=== PATIENT | male | born 1995 | race Caucasian/White ===

== ENCOUNTER 2017-02-15 23:07 | Emergency (ER) | payer OTHER ==
--- NOTE | 2017-02-15 23:09 | EDPHY ---
H & P HPI/ROS: HPI CHIEF COMPLAINT: Nausea, vomiting, diarrhea, abdominal pain HISTORY OF PRESENT ILLNESS: patient otherwise healthy 21-year-old male, no significant medical history does not take any daily medications, no abdominal surgeries, presents emergency room with nausea vomiting and abdominal pain. The abdominal pain is located right upper quadrant right lower quadrant. States he was in [facility] he ate at [employer]. He tells me he had wings and cheese curds. He states shortly after around 5 o'clock after eating this he developed some nausea and some abdominal pain he persistently had nausea vomiting and diarrhea after this. He vomited multiple times. He denies chest pain or shortness of breath denies fever. His pain is located right upper quadrant epigastric and right lower quadrant. 01/20. Past Medical History: No significant medical Past Surgical History: no abdominal surgeries he still has appendix and gallbladder. Social History: Social drinker, denies illicit drugs or alcohol daily denies tobacco. Had 1 drink this evening. [employer]. Family History: noncontributory ROS REVIEW OF SYSTEMS: A comprehensive 10 point review of systems is otherwise negative aside from elements mentioned in the history of present illness. Exam Constitutional appears well nontoxic triage nursing summary reviewed, vital signs reviewed, awake/alert. Eyes normal conjunctivae and sclera, EOMI, PERRLA. HENT normal inspection, atraumatic, moist mucus membranes, no epistaxis, neck supple/ no meningismus, no raccoon eyes. Respiratory clear to auscultation bilaterally, normal breath sounds, no respiratory distress, no wheezing. Cardiovascular rate normal, regular rhythm, no murmur, no edema, distal pulses normal. Gastrointestinal soft, tender palpation right upper quadrant, epigastric, right lower quadrant, no peritoneal signs, hyperactive bowel sounds, no rebound , no guarding, no distension, no pulsatile mass. Genitourinary no CVA tenderness. Musculoskeletal no midline vertebral tenderness, full range of motion, no calf swelling, no tenderness of extremities, no meningismus, good pulses, neurovascularly intact. Skin pink, warm, & dry, no rash, skin atraumatic. Neurologic awake, alert and oriented x 3, AAOx3, moves all 4 extremities equally, motor intact, sensory intact, CN II-XII intact, normal cerebellar, normal vision, normal speech. Psychiatric normal mood/affect. Heme/Lymph/Immune no lymphadenopathy. Differential Diagnosis:Differential diagnosis includes but is not limited to and in no particular order: Food-borne illness, pancreatitis, gallbladder disease, Bowel obstruction, appendicitis,, diverticulitis, colitis, enteritis, perforated viscus, gastritis, GERD, esophagitis, urinary tract infection, pyelonephritis, kidney stones Medical Decision Making: plan for this patient IV establishment, IV fluid bolus , IV Zofran for nausea, IV Dilaudid for acute pain control. Ultrasound right upper quadrant, abdominal blood work reassess. Re-evaluation: Ultrasound of the Right upper quadrant. The results of the study are negative for anything acute. I discussed the results of this study with the radiologist Dr. ANAYA [id number]: Re-evaluation this time patient does feel better after IV fluids nausea medicine and Dilaudid. He Is resting comfortably. Blood work pending. Ultrasound reviewed negative. [id number]: Re-evaluated. Patient complains of right lower quadrant pain. Ongoing nausea. We medicated with IV Dilaudid. plan is for CT abdomen pelvis with IV contrast. CT scan of the Abdomen pelvis with IV contrast The results of the study are enteritis present, right lower quadrant lymphadenopathy but a normal appendix. The study was read by Dr. Marie. I viewed the images myself on the PACS system. 0219: Patient is resting comfortably. Abdomen soft. No guarding or peritoneal signs. CT reviewed shows enteritis with lymphadenopathy normal appendix. Patient requesting to drink something. Will p.o. challenge him. If he does well he can be discharged from the emergency room. He understands bland diet for next 24-48 hours return emergency room if there is worsening symptoms includes worsening abdominal pain, fever, vomiting. He understands. Source: Patient Constitutional: Initial Vital Signs Temperature (C) 36.5 C 02/15/17 23:11 Heart Rate 107 H 02/15/17 23:11 Respiratory Rate 19 02/15/17 23:11 Blood Pressure 134/89 H 02/15/17 23:11 O2 Sat (%) 99 02/15/17 23:11 O2 Delivery Mode Room Air Allergies/Adverse Reactions: nickel Allergy (Verified 02/15/17 23:11) Home Medications: Medication Instructions Recorded NK [No Known Home Meds] 02/15/17 Medical Decision Making - Data Points Laboratory Results: Laboratory Results 02/15/17 23:35 02/15/17 23:35 02/15/17 02/15/17 02/15/17 23:35 23:35 23:35 WBC 11.90 10^3/uL H 10^3/uL (3.80-9.50) RBC 5.91 10^6/uL 10^6/uL (4.40-6.38) Hgb 16.7 g/dL g/dL (13.7-17.5) Hct 48.0 % % (40.0-51.0) MCV 81.2 fL L fL (81.5-99.8) MCH 28.3 pg pg (27.9-34.1) MCHC 34.8 g/dL g/dL (32.4-36.7) RDW 12.3 % % (11.5-15.2) Plt Count 220 10^3/uL 10^3/uL (150-400) MPV 10.1 fL fL (8.7-11.7) Neut % (Auto) 87.9 % H % (39.3-74.2) Lymph % (Auto) 5.2 % L % (15.0-45.0) Ida % (Auto) 5.4 % % (4.5-13.0) Eos % (Auto) 0.8 % % (0.6-7.6) Baso % (Auto) 0.4 % % (0.3-1.7) Nucleat RBC Rel Count 0.0 % % (0.0-0.2) Absolute Neuts (auto) 10.46 10^3/uL H 10^3/uL (1.70-6.50) Absolute Lymphs (auto) 0.62 10^3/uL L 10^3/uL (1.00-3.00) Absolute Monos (auto) 0.64 10^3/uL 10^3/uL (0.30-0.80) Absolute Eos (auto) 0.09 10^3/uL 10^3/uL (0.03-0.40) Absolute Basos (auto) 0.05 10^3/uL 10^3/uL (0.02-0.10) Absolute Nucleated RBC 0.00 10^3/uL 10^3/uL (0-0.01) Immature Gran % 0.3 % % (0.0-1.1) Immature Gran # 0.04 10^3/uL 10^3/uL (0.00-0.10) VBG Lactic Acid 1.5 mmol/L mmol/L (0.7-2.1) Sodium 139 mEq/L mEq/L (134-144) Potassium 4.2 mEq/L mEq/L (3.5-5.2) Chloride 103 mEq/L mEq/L (97-110) Carbon Dioxide 21 mEq/l L mEq/l (22-31) Anion Gap 15 mEq/L mEq/L (8-16) BUN 15 mg/dL mg/dL (7-23) Creatinine 1.2 mg/dL mg/dL (0.7-1.3) Estimated GFR > 60 Glucose 117 mg/dL H mg/dL (70-100) Calcium 10.3 mg/dL mg/dL (8.5-10.4) Total Bilirubin 2.2 mg/dL H mg/dL (0.1-1.4) Conjugated Bilirubin 0.4 mg/dL mg/dL (0.0-0.5) Unconjugated Bilirubin 1.8 mg/dL H mg/dL (0.0-1.1) AST 25 IU/L IU/L (17-59) ALT 58 IU/L IU/L (21-72) Alkaline Phosphatase 75 IU/L IU/L (38-126) Total Protein 8.0 g/dL g/dL (6.3-8.2) Albumin 5.0 g/dL g/dL (3.5-5.0) Lipase 96.0 IU/L IU/L (23-300) Medications Given: Discontinued Medications Hydromorphone HCl (Dilaudid) 0.5 mg IVP EDNOW ONE Stop: 02/15/17 23:17 Last Admin: 02/15/17 23:43 Dose: 0.5 mg Hydromorphone HCl (Dilaudid) 0.5 mg IVP EDNOW ONE Stop: 02/16/17 01:15 Last Admin: 02/16/17 01:23 Dose: 1 mg Sodium Chloride (Ns) 1,000 mls @ 0 mls/hr IV ONCE ONE; Wide Open PRN Reason: Protocol Stop: 02/15/17 23:17 Last Admin: 02/15/17 23:42 Dose: 1,000 mls Sodium Chloride (Ns) 1,000 mls @ 0 mls/hr IV ONCE ONE PRN Reason: Wide Open Stop: 02/15/17 23:57 Last Admin: 02/16/17 00:23 Dose: 1,000 mls Sodium Chloride (Ns) 1,000 mls @ 0 mls/hr IV ONCE ONE PRN Reason: Wide Open Stop: 02/16/17 01:27 Last Admin: 02/16/17 01:20 Dose: 1,000 mls Ondansetron HCl (Zofran) 4 mg IVP EDNOW ONE Stop: 02/15/17 23:17 Last Admin: 02/15/17 23:42 Dose: 4 mg Departure - Departure Disposition: Home, Routine, Self-Care Clinical Impression: Enteritis Condition: Good Instructions: Acute Abdominal Pain (ED), Enteritis (ED) Additional Instructions: 1. [place] diet next 24-48 hours. No spicy fatty greasy foods. No alcohol. 2. Return to the emergency room if he develops worsening abdominal pain fever or vomiting Referrals: NONE *PRIMARY CARE P,. [Primary Care Provider] - As per Instructions
[2017-02-15] MEDS ORDERED: HYDROmorphONE/DILAUDID 1 MG/ML SYR IVP ONE (23:16)
[2017-02-15] MEDS ORDERED: ONDANSETRON 4 MG/2 ML VIAL IVP ONE (23:16)
[2017-02-15] MEDS ORDERED: NS 1,000 ML IV ONE ×2 (23:16→23:56)
[2017-02-15 23:42] LABS: % IMMATURE GRANULYOCYTES 0.3 % (0.0-1.1); ABSOLUTE IMMATURE GRANULOCYTES 0.04 10^3/uL (0.00-0.10); ADD DIFF? NO; ADD MORPH? NO; ADD SCAN? NO; ATYPICAL LYMPHOCYTE FLAG 10 (0-99); FRAGMENT RBC FLAG 0 (0-99); HEMOGLOBIN 16.7 g/dL (13.7-17.5); LEFT SHIFT FLG 10 (0-99); LIPEMIA HEMOLYSIS FLAG 90 (0-99); MEAN CELL HEMOGLOBIN 28.3 pg (27.9-34.1); MEAN CELL HEMOGLOBIN CONCENTR. 34.8 g/dL (32.4-36.7); MEAN CELL VOLUME 81.2 fL (81.5-99.8); MEAN PLATELET VOLUME 10.1 fL (8.7-11.7); PLATELET CLUMPS FLAG 0 (0-99); PLATELET COUNT 220 10^3/uL (150-400); RED BLOOD CELL COUNT 5.91 10^6/uL (4.40-6.38); RED CELL DISTRIBUTION WIDTH 12.3 % (11.5-15.2)
[2017-02-15 23:55] LABS: ALANINE AMINOTRANSFERASE 58 IU/L (21-72); ALKALINE PHOSPHATASE 75 IU/L (38-126); ANION GAP 15 mEq/L (8-16); ASPARTATE AMINOTRANSFERASE 25 IU/L (17-59); BILIRUBIN,TOTAL 2.2 mg/dL (0.1-1.4); BILIRUBIN-CONJUGATED 0.4 mg/dL (0.0-0.5); BILIRUBIN-UNCONJUGATED 1.8 mg/dL (0.0-1.1); CALCIUM 10.3 mg/dL (8.5-10.4); CARBON DIOXIDE 21 mEq/l (22-31); CHLORIDE 103 mEq/L (97-110); CREATININE 1.2 mg/dL (0.7-1.3); GLOMERULAR FILTRATION RATE > 60; GLUCOSE 117 mg/dL (70-100); POTASSIUM 4.2 mEq/L (3.5-5.2); SODIUM 139 mEq/L (134-144)
[2017-02-16] MEDS ORDERED: ONDANSETRON 4 MG/2 ML VIAL ONE (00:19)
[2017-02-16] MEDS ORDERED: HYDROmorphONE/DILAUDID 1 MG/ML SYR ONE (01:13)
[2017-02-16] MEDS ORDERED: HYDROmorphONE/DILAUDID 1 MG/ML SYR IVP ONE (01:14)
[2017-02-16] MEDS ORDERED: IOPAMIDOL (ISOVUE-300) 100 ML BTL ONE (01:16)
[2017-02-16] MEDS ORDERED: NS 1,000 ML IV ONE (01:26)
[2017-02-16] MEDS ORDERED: ONDANSETRON 4MG PREPACK#2 BTL TAKEHOME ONE (02:20)
[2017-02-16 02:32] VITALS: BP 132/81; PULSE 77; RESP 16; TEMP 98.1; O2SAT 98
== END 2017-02-16 02:38 | disposition home or self-care (01) ==
LOC: EDBD 23:07
DX: K52.9 Noninfective gastroenteritis and colitis, unspecified (principal)
CPT/HCPCS: 96374; J1170; J2405; Q9967